=== PATIENT | male | born 1955 | race African-American/Black ===

== ENCOUNTER 2023-01-08 18:13 | Inpatient (IN) | payer MEDICARE ==
[~2023-01-08] VITALS: Ht 177.8 cm; Wt 86.2 kg
[~2023-01-08 18:13] MED LIST: LIDOCAINE HCL 2% LOCAL INJ 5 ML SDV VIAL INJ ONE; POVIDONE IODINE 0.05% 0.05 % ML PO ONE; PROPOFOL IV EMULSION 10 MG/ML 20 ML VIAL ONE
[2023-01-08] MEDS ORDERED: ONDANSETRON HCL INJ 2MG/ML 2ML 2 MG/ML VIAL IV PRN (18:45)
[2023-01-08] MEDS ORDERED: SODIUM CHLORIDE FLUSH 10 ML SYR INJ PRN (18:45)
[2023-01-08 19:12] LABS: BASOPHILS # (AUTO) 0.1 (0.0-0.1); BASOPHILS % 0.9 % (0.0-1.0); EOSINOPHILS # (AUTO) 0.3 (0.0-0.4); EOSINOPHILS % 4.5 % (0.0-6.0); HEMATOCRIT 33.8 % (38.2-49.6); HEMOGLOBIN 10.4 g/dL (14.0-18.0); LYMPHOCYTES # (AUTO) 1.7 (1.0-3.2); LYMPHOCYTES % 24.1 % (18.0-39.1); MEAN CORPUSCULAR HEMOGLOBIN 29.1 pg (28-32); MEAN CORPUSCULAR HGB CONC 30.8 g/dL (31-35); MEAN CORPUSCULAR VOLUME 94.4 fL (81-99); MONOCYTES # (AUTO) 0.9 (0.2-0.8); MONOCYTES % 12.4 % (4.4-11.3); NEUTROPHILS # (AUTO) 4.1 (2.1-6.9); NEUTROPHILS % 57.7 % (38.7-80.0); PLATELET COUNT 157 x10e3/uL (140-360); RED BLOOD COUNT 3.58 x10e6/uL (4.3-5.7); RED CELL DISTRIBUTION WIDTH 16.5 % (11.7-14.4)
[2023-01-08 19:29] LABS: ALANINE AMINOTRANSFERASE 8 IU/L (0-55); ALBUMIN 3.6 g/dL (3.5-5.0); ALBUMIN/GLOBULIN RATIO 0.9 (0.8-2.0); ALKALINE PHOSPHATASE 65 IU/L (40-150); ANION GAP 15.2 mmol/L (8-16); BLOOD UREA NITROGEN 36 mg/dL (7-26); BUN/CREATININE RATIO 7 (6-25); CALCIUM 8.9 mg/dL (8.4-10.2); CARBON DIOXIDE 28 mmol/L (22-29); CHLORIDE 101 mmol/L (98-107); CREATININE, SERUM 5.24 mg/dL (0.72-1.25); GLUCOSE 155 mg/dL (74-118); POTASSIUM 4.2 mmol/L (3.5-5.1); SODIUM 140 mmol/L (136-145)
[2023-01-08] MEDS ORDERED: ENTRESTO 24 MG1 EACH PO (20:07)
[2023-01-08] MEDS ORDERED: BUMETANIDE1 MG PO (20:07)
[2023-01-08] MEDS ORDERED: HYDRALAZINE HCL50 MG PO (20:07)
[2023-01-08] MEDS ORDERED: SEVELAMER CARB800 MG PO (20:07)
[2023-01-08] MEDS ORDERED: CINACALCET HCL30 MG PO (20:09)
[2023-01-08] MEDS ORDERED: CLOPIDOGREL75 MG PO (20:09)
[2023-01-08] MEDS ORDERED: ELIQUIS2.5 MG PO (20:09)
[2023-01-08] MEDS ORDERED: ISOSORBIDE MONO30 MG PO (20:16)
[2023-01-08] MEDS ORDERED: GABAPENTIN100 MG PO (20:16)
[2023-01-08] MEDS ORDERED: DORZOLAMIDE-TIM10 ML OU (20:16)
[2023-01-08] MEDS ORDERED: CALCITRIOL0.25 MCG PO (20:16)
[2023-01-08] MEDS ORDERED: LATANOPROST2.5 ML OU (20:16)
[2023-01-08] MEDS ORDERED: HUMALOG100 UNIT/3 SQ (20:16)
[2023-01-08] MEDS ORDERED: FINASTERIDE5 MG PO (20:16)
[2023-01-08] MEDS ORDERED: LANTUS 3ML100 UNITS/ SQ (20:16)
[2023-01-08] MEDS ORDERED: CARVEDILOL25 MG PO (20:16)
[2023-01-08] MEDS ORDERED: ATORVASTATIN CA20 MG PO (20:16)
[2023-01-08] MEDS ORDERED: DIALYVITE 800-1 EACH PO (20:17)
[2023-01-08] MEDS: LATANOPROST(OPTH) 2.5 ML BTL OU SCH (21:00)
[2023-01-08] MEDS: HYDRALAZINE HCL 25 MG TAB PO SCH (22:16)
[2023-01-08] MEDS: GABAPENTIN 100 MG CAP PO SCH (22:16)
[2023-01-08] MEDS: SEVELAMER CARBONATE 800 MG TAB PO SCH (22:16)
[2023-01-08] MEDS ORDERED: DEXTROSE 50% SYRINGE 50 ML IV PRN (23:45)
[2023-01-09] MEDS: INSULIN LISPRO 100 UNIT/1 ML 3ML VIAL SQ SCH ×7 (07:13→20:58)
[2023-01-09] MEDS: INSULIN GLARGINE 100 UNITS/ML VIAL SQ SCH ×2 (07:30→17:44)
[2023-01-09] MEDS: SEVELAMER CARBONATE 800 MG TAB PO SCH ×3 (08:00→17:19)
[2023-01-09] MEDS: CINACALCET 30 MG TAB PO SCH ×2 (08:00→15:53)
[2023-01-09] MEDS ORDERED: INSULIN LISPRO 100 UNIT/1 ML 3ML VIAL SQ SCH (08:00)
[2023-01-09] MEDS: HYDRALAZINE HCL 25 MG TAB PO SCH ×3 (09:00→20:53)
[2023-01-09] MEDS: VIT BCOMP PO SCH (09:00)
[2023-01-09] MEDS: VITAMIN D3 PO SCH (09:00)
[2023-01-09] MEDS: APIXAB 2.5 MG TABLET PO SCH ×2 (09:00→17:19)
[2023-01-09] MEDS: CARVEDILOL 12.5 MG TAB PO SCH ×2 (09:00→17:20)
[2023-01-09] MEDS: GABAPENTIN 100 MG CAP PO SCH ×3 (09:00→20:51)
[2023-01-09] MEDS ORDERED: INSULIN GLARGINE 100 UNITS/ML VIAL SQ SCH (09:00)
[2023-01-09] MEDS: VALSARTAN/SACUBITRIL 24MG/26MG 1 EA TAB PO SCH ×2 (09:00→17:19)
[2023-01-09] MEDS: [UNRECOGNIZED DRUG - OTHER] PO SCH (09:00)
[2023-01-09] MEDS: DORZOLAMIDE/TIMOLOL (OPTH SOL) 10 ML DRPETTE OP SCH ×2 (09:00→17:30)
[2023-01-09] MEDS: ZINC PO SCH (09:00)
[2023-01-09] MEDS ORDERED: ATORVASTATIN 20 MG TAB PO SCH (09:00)
[2023-01-09 11:03] VITALS: BP 152/61; PULSE 62; RESP 18; TEMP 98.1; O2SAT 97
[2023-01-09 11:11] VITALS: BP 152/61; PULSE 62; RESP 18; TEMP 98.1; O2SAT 97
[2023-01-09 12:14] VITALS: BP 152/61; PULSE 62; RESP 18; TEMP 98.1; O2SAT 99
[2023-01-09 15:00] VITALS: BP 134/84; PULSE 64; RESP 19; TEMP 98.7; O2SAT 99
[2023-01-09] MEDS: CALCITRIOL 0.25 MCG CAP PO SCH (15:52)
[2023-01-09] MEDS: BUMETANIDE 1 MG TAB PO SCH (15:52)
[2023-01-09] MEDS: ISOSORBIDE MONONITRATE 30 MG TAB CR PO SCH (15:52)
[2023-01-09] MEDS: FINASTERIDE 5 MG TAB PO SCH (15:53)
[2023-01-09] MEDS: CLOPIDOGREL BISULFATE 75 MG TAB PO SCH (15:53)
[2023-01-09] MEDS: ATORVASTATIN 20 MG TAB PO SCH (20:51)
[2023-01-09] MEDS: LATANOPROST(OPTH) 2.5 ML BTL OU SCH (20:53)
[2023-01-09] MEDS: HYDROCODONE/APAP 10MG-325MG TAB PO PRN (21:32)
[2023-01-09 21:35] VITALS: BP 101/56; PULSE 65; RESP 18; TEMP 97.8; O2SAT 96
[2023-01-10] VITALS (8 sets, daily range): BP systolic 89–138; BP diastolic 45–64; PULSE 57–69; RESP 17–20; TEMP 97.5–98.1; O2SAT 96–100
[2023-01-10] MEDS: HYDROCODONE/APAP 10MG-325MG TAB PO PRN (06:15)
[2023-01-10] MEDS: [UNRECOGNIZED DRUG - OTHER] PO SCH (09:00)
[2023-01-10] MEDS: VITAMIN D3 PO SCH (09:00)
[2023-01-10] MEDS: VIT BCOMP PO SCH (09:00)
[2023-01-10] MEDS: ZINC PO SCH (09:00)
[2023-01-10] MEDS: DORZOLAMIDE/TIMOLOL (OPTH SOL) 10 ML DRPETTE OP SCH ×2 (09:11→16:55)
[2023-01-10] MEDS: SEVELAMER CARBONATE 800 MG TAB PO SCH ×3 (09:12→16:54)
[2023-01-10] MEDS: BUMETANIDE 1 MG TAB PO SCH (09:14)
[2023-01-10] MEDS: GABAPENTIN 100 MG CAP PO SCH ×3 (09:14→21:24)
[2023-01-10] MEDS: CLOPIDOGREL BISULFATE 75 MG TAB PO SCH (09:14)
[2023-01-10] MEDS: FINASTERIDE 5 MG TAB PO SCH (09:15)
[2023-01-10] MEDS: CARVEDILOL 12.5 MG TAB PO SCH ×2 (09:15→16:54)
[2023-01-10] MEDS: APIXAB 2.5 MG TABLET PO SCH ×2 (09:15→16:54)
[2023-01-10] MEDS: HYDRALAZINE HCL 25 MG TAB PO SCH ×3 (09:15→21:24)
[2023-01-10] MEDS: VALSARTAN/SACUBITRIL 24MG/26MG 1 EA TAB PO SCH ×2 (09:18→16:54)
[2023-01-10] MEDS: ISOSORBIDE MONONITRATE 30 MG TAB CR PO SCH (09:18)
[2023-01-10] MEDS: INSULIN GLARGINE 100 UNITS/ML VIAL SQ SCH ×2 (09:21→16:51)
[2023-01-10] MEDS: INSULIN LISPRO 100 UNIT/1 ML 3ML VIAL SQ SCH ×7 (09:21→21:33)
[2023-01-10] MEDS: LATANOPROST(OPTH) 2.5 ML BTL OU SCH (21:22)
[2023-01-10] MEDS: ATORVASTATIN 20 MG TAB PO SCH (21:24)
[2023-01-11] VITALS (7 sets, daily range): BP systolic 92–129; BP diastolic 54–65; PULSE 60–67; RESP 18–20; TEMP 96.7–98.8; O2SAT 97–100
[2023-01-11 06:14] LABS: BASOPHILS # (AUTO) 0.1 (0.0-0.1); BASOPHILS % 0.9 % (0.0-1.0); EOSINOPHILS # (AUTO) 0.4 (0.0-0.4); EOSINOPHILS % 6.5 % (0.0-6.0); HEMATOCRIT 37.3 % (38.2-49.6); HEMOGLOBIN 11.8 g/dL (14.0-18.0); LYMPHOCYTES # (AUTO) 1.9 (1.0-3.2); MEAN CORPUSCULAR HEMOGLOBIN 29.1 pg (28-32); MEAN CORPUSCULAR HGB CONC 31.6 g/dL (31-35); MEAN CORPUSCULAR VOLUME 91.9 fL (81-99); MONOCYTES # (AUTO) 0.8 (0.2-0.8); MONOCYTES % 12.3 % (4.4-11.3); NEUTROPHILS # (AUTO) 3.4 (2.1-6.9); NEUTROPHILS % 50.8 % (38.7-80.0); PLATELET COUNT 181 x10e3/uL (140-360); RED BLOOD COUNT 4.06 x10e6/uL (4.3-5.7); RED CELL DISTRIBUTION WIDTH 16.1 % (11.7-14.4)
[2023-01-11 06:22] LABS: INR 1.07; PROTHROMBIN TIME 14.4 seconds (11.9-14.5)
[2023-01-11 06:35] LABS: ANION GAP 17.6 mmol/L (8-16); CALCIUM 8.7 mg/dL (8.4-10.2); CHOL/HDL RATIO 4.5 (3.9-4.7); CREATININE, SERUM 6.37 mg/dL (0.72-1.25); POTASSIUM 4.6 mmol/L (3.5-5.1)
[2023-01-11] MEDS: [UNRECOGNIZED DRUG - OTHER] PO SCH (09:00)
[2023-01-11] MEDS: APIXAB 2.5 MG TABLET PO SCH ×2 (09:00→09:10)
[2023-01-11] MEDS: CLOPIDOGREL BISULFATE 75 MG TAB PO SCH ×2 (09:00→09:09)
[2023-01-11] MEDS: ISOSORBIDE MONONITRATE 30 MG TAB CR PO SCH (09:00)
[2023-01-11] MEDS: VIT BCOMP PO SCH (09:00)
[2023-01-11] MEDS: HYDRALAZINE HCL 25 MG TAB PO SCH ×3 (09:00→21:00)
[2023-01-11] MEDS: VITAMIN D3 PO SCH (09:00)
[2023-01-11] MEDS: ZINC PO SCH (09:00)
[2023-01-11] MEDS: SEVELAMER CARBONATE 800 MG TAB PO SCH ×3 (09:09→16:29)
[2023-01-11] MEDS: GABAPENTIN 100 MG CAP PO SCH ×3 (09:09→21:00)
[2023-01-11] MEDS: VALSARTAN/SACUBITRIL 24MG/26MG 1 EA TAB PO SCH ×2 (09:10→16:29)
[2023-01-11] MEDS: CARVEDILOL 12.5 MG TAB PO SCH ×2 (09:10→16:29)
[2023-01-11] MEDS: BUMETANIDE 1 MG TAB PO SCH (09:11)
[2023-01-11] MEDS: DORZOLAMIDE/TIMOLOL (OPTH SOL) 10 ML DRPETTE OP SCH ×2 (09:16→16:28)
[2023-01-11] MEDS: INSULIN LISPRO 100 UNIT/1 ML 3ML VIAL SQ SCH ×7 (09:21→21:00)
[2023-01-11] MEDS: INSULIN GLARGINE 100 UNITS/ML VIAL SQ SCH ×2 (09:22→17:14)
[2023-01-11] MEDS: FINASTERIDE 5 MG TAB PO SCH (09:25)
[2023-01-11] MEDS: MUPIROCIN 2% OINT 22 GM TUBE TOP SCH ×2 (09:27→17:16)
[2023-01-11 14:46] LABS: ANION GAP 18.9 mmol/L (8-16); CALCIUM 8.9 mg/dL (8.4-10.2); CREATININE, SERUM 7.06 mg/dL (0.72-1.25); POTASSIUM 4.9 mmol/L (3.5-5.1)
[2023-01-11] MEDS: LATANOPROST(OPTH) 2.5 ML BTL OU SCH (20:58)
[2023-01-11] MEDS: ATORVASTATIN 20 MG TAB PO SCH (21:00)
[2023-01-11 23:03] LABS: AMPHETAMINES SCREEN,URINE NEGATIVE (NEGATIVE); BENZODIAZEPINES SCREEN,URINE NEGATIVE (NEGATIVE); PHENCYCLIDINE SCREEN,URINE NEGATIVE (NEGATIVE)
[2023-01-12] VITALS (8 sets, daily range): BP systolic 99–140; BP diastolic 47–61; PULSE 62–74; RESP 18–20; TEMP 98–98.6; O2SAT 96–100
[2023-01-12 06:04] LABS: ANION GAP 19.3 mmol/L (8-16); CALCIUM 8.5 mg/dL (8.4-10.2); CREATININE, SERUM 7.76 mg/dL (0.72-1.25); POTASSIUM 4.3 mmol/L (3.5-5.1)
[2023-01-12] MEDS ORDERED: Vancomycin IV 1 GM VIAL ONE (06:31)
[2023-01-12] MEDS ORDERED: LIDOCAINE HCL 1% LOCAL INJ 20 ML VIAL ONE (06:32)
[2023-01-12] MEDS ORDERED: BUPIVACAINE HCL 0.5% INJ 30 ML VIAL INJ ONE ×2 (06:32→06:55)
[2023-01-12] MEDS ORDERED: BETAMETHASONE DISODIUM PHOS 6 MG/ML VIAL ONE (06:55)
[2023-01-12] MEDS ORDERED: MUPIROCIN 2% OINT 22 GM TUBE ONE (06:55)
[2023-01-12] MEDS: INSULIN GLARGINE 100 UNITS/ML VIAL SQ SCH ×2 (07:30→16:01)
[2023-01-12] MEDS: INSULIN LISPRO 100 UNIT/1 ML 3ML VIAL SQ SCH ×7 (07:30→21:00)
[2023-01-12] MEDS: VITAMIN D3 PO SCH (09:00)
[2023-01-12] MEDS: VIT BCOMP PO SCH (09:00)
[2023-01-12] MEDS: ZINC PO SCH (09:00)
[2023-01-12] MEDS: [UNRECOGNIZED DRUG - OTHER] PO SCH (09:00)
[2023-01-12] MEDS: BUMETANIDE 1 MG TAB PO SCH (09:08)
[2023-01-12] MEDS: SEVELAMER CARBONATE 800 MG TAB PO SCH ×3 (09:09→17:49)
[2023-01-12] MEDS: VALSARTAN/SACUBITRIL 24MG/26MG 1 EA TAB PO SCH ×2 (09:09→17:00)
[2023-01-12] MEDS: CALCITRIOL 0.25 MCG CAP PO SCH (09:09)
[2023-01-12] MEDS: MUPIROCIN 2% OINT 22 GM TUBE TOP SCH ×2 (09:09→17:52)
[2023-01-12] MEDS: HYDRALAZINE HCL 25 MG TAB PO SCH ×3 (09:09→20:23)
[2023-01-12] MEDS: ISOSORBIDE MONONITRATE 30 MG TAB CR PO SCH (09:10)
[2023-01-12] MEDS: LATANOPROST(OPTH) 2.5 ML BTL OU SCH ×2 (09:10→17:49)
[2023-01-12] MEDS: CINACALCET 30 MG TAB PO SCH (09:10)
[2023-01-12] MEDS: FINASTERIDE 5 MG TAB PO SCH (09:10)
[2023-01-12] MEDS: CARVEDILOL 12.5 MG TAB PO SCH ×2 (09:12→17:00)
[2023-01-12] MEDS: DORZOLAMIDE/TIMOLOL (OPTH SOL) 10 ML DRPETTE OP SCH ×2 (09:12→17:50)
[2023-01-12] MEDS: GABAPENTIN 100 MG CAP PO SCH ×3 (09:12→20:21)
[2023-01-12] MEDS ORDERED: ONDANSETRON HCL 4 MG ORAL DISINTEGRATING TAB PO PRN (13:00)
[2023-01-12] MEDS ORDERED: SODIUM CHLORIDE 0.9% 1000ML 2,000 ML ONE (14:20)
[2023-01-12] MEDS ORDERED: ALBUMIN 25% 12.5GM 50ML 50 ML IV ONE (15:02)
[2023-01-12] MEDS ORDERED: ALBUMIN 25% 12.5GM 0.25 GM/ML BTL IV PRN (16:30)
[2023-01-12] MEDS ORDERED: SODIUM CHLORIDE 0.9% 1000ML 2,000 ML IV PRN (16:30)
[2023-01-12] MEDS: HYDROCODONE/APAP 10MG-325MG TAB PO PRN (20:22)
[2023-01-12] MEDS: ATORVASTATIN 20 MG TAB PO SCH (20:23)
[2023-01-13] VITALS (7 sets, daily range): BP systolic 98–120; BP diastolic 45–56; PULSE 67–76; RESP 17–20; TEMP 98–99.4; O2SAT 96–100
[2023-01-13] MEDS: HYDRALAZINE HCL 25 MG TAB PO SCH ×3 (04:34→21:00)
[2023-01-13] MEDS: HYDROCODONE/APAP 10MG-325MG TAB PO PRN ×2 (05:56→16:22)
[2023-01-13] MEDS: INSULIN GLARGINE 100 UNITS/ML VIAL SQ SCH ×2 (07:30→16:35)
[2023-01-13] MEDS: INSULIN LISPRO 100 UNIT/1 ML 3ML VIAL SQ SCH ×7 (07:30→21:19)
[2023-01-13] MEDS: GABAPENTIN 100 MG CAP PO SCH ×3 (08:11→21:13)
[2023-01-13] MEDS: CARVEDILOL 12.5 MG TAB PO SCH ×2 (08:11→17:00)
[2023-01-13] MEDS: FINASTERIDE 5 MG TAB PO SCH (08:11)
[2023-01-13] MEDS: BUMETANIDE 1 MG TAB PO SCH (08:11)
[2023-01-13] MEDS: SEVELAMER CARBONATE 800 MG TAB PO SCH ×3 (08:12→18:27)
[2023-01-13] MEDS: VALSARTAN/SACUBITRIL 24MG/26MG 1 EA TAB PO SCH ×2 (08:13→18:27)
[2023-01-13] MEDS: ISOSORBIDE MONONITRATE 30 MG TAB CR PO SCH (08:13)
[2023-01-13] MEDS: [UNRECOGNIZED DRUG - OTHER] PO SCH (08:14)
[2023-01-13] MEDS: VIT BCOMP PO SCH (08:14)
[2023-01-13] MEDS: ZINC PO SCH (08:14)
[2023-01-13] MEDS: VITAMIN D3 PO SCH (08:14)
[2023-01-13] MEDS: DORZOLAMIDE/TIMOLOL (OPTH SOL) 10 ML DRPETTE OP SCH ×2 (08:16→18:27)
[2023-01-13] MEDS: MUPIROCIN 2% OINT 22 GM TUBE TOP SCH ×2 (09:53→17:54)
[2023-01-13] MEDS: ATORVASTATIN 20 MG TAB PO SCH (21:13)
[2023-01-13] MEDS: LATANOPROST(OPTH) 2.5 ML BTL OU SCH (21:14)
[2023-01-14] VITALS (10 sets, daily range): BP systolic 100–140; BP diastolic 40–73; PULSE 61–88; RESP 16–20; TEMP 97.8–99; O2SAT 96–99
[2023-01-14] MEDS: INSULIN LISPRO 100 UNIT/1 ML 3ML VIAL SQ SCH ×7 (07:30→20:28)
[2023-01-14] MEDS: ZINC PO SCH (09:00)
[2023-01-14] MEDS: MUPIROCIN 2% OINT 22 GM TUBE TOP SCH ×2 (09:00→16:56)
[2023-01-14] MEDS: VIT BCOMP PO SCH (09:00)
[2023-01-14] MEDS: VITAMIN D3 PO SCH (09:00)
[2023-01-14] MEDS: [UNRECOGNIZED DRUG - OTHER] PO SCH (09:00)
[2023-01-14] MEDS: DORZOLAMIDE/TIMOLOL (OPTH SOL) 10 ML DRPETTE OP SCH ×2 (09:00→16:55)
[2023-01-14] MEDS: LINEZOLID 600 MG/D5W 300ML 300 ML IV SCH ×2 (09:23→22:27)
[2023-01-14] MEDS: ISOSORBIDE MONONITRATE 30 MG TAB CR PO SCH (09:28)
[2023-01-14] MEDS: SEVELAMER CARBONATE 800 MG TAB PO SCH ×3 (09:28→16:53)
[2023-01-14] MEDS: FINASTERIDE 5 MG TAB PO SCH (09:29)
[2023-01-14] MEDS: BUMETANIDE 1 MG TAB PO SCH (09:29)
[2023-01-14] MEDS ORDERED: HEPARIN SOD (PORCINE) 1000 UNIT/ML 30ML ONE (09:29)
[2023-01-14] MEDS ORDERED: LIDOCAINE HCL 2% LOCAL 20 ML VIAL ONE (09:29)
[2023-01-14] MEDS: CINACALCET 30 MG TAB PO SCH (09:30)
[2023-01-14] MEDS ORDERED: IOPAMIDOL 370 MG/ML 100 ML INFUS..BTL INJ ONE ×2 (09:30→09:42)
[2023-01-14] MEDS: VALSARTAN/SACUBITRIL 24MG/26MG 1 EA TAB PO SCH ×2 (09:30→16:56)
[2023-01-14] MEDS: CARVEDILOL 12.5 MG TAB PO SCH ×2 (09:30→16:55)
[2023-01-14] MEDS: CALCITRIOL 0.25 MCG CAP PO SCH (09:30)
[2023-01-14] MEDS ORDERED: HEPARIN SOD/SOD CHLORIDE 2,000 ML ONE (09:30)
[2023-01-14] MEDS ORDERED: NITROGLYCERIN/D5W 200 MCG/ML 250 ML ONE (09:30)
[2023-01-14] MEDS ORDERED: SODIUM CHLORIDE 0.9% 1000ML 1,000 ML ONE ×2 (09:30→10:28)
[2023-01-14] MEDS: GABAPENTIN 100 MG CAP PO SCH ×3 (09:31→22:27)
[2023-01-14] MEDS: HYDRALAZINE HCL 25 MG TAB PO SCH ×3 (09:32→22:29)
[2023-01-14] MEDS: LATANOPROST(OPTH) 2.5 ML BTL OU SCH ×2 (09:35→22:32)
[2023-01-14] MEDS: INSULIN GLARGINE 100 UNITS/ML VIAL SQ SCH ×2 (09:43→17:02)
[2023-01-14] MEDS ORDERED: MIDAZOLAM HCL 2 MG/2 ML VIAL ONE (10:06)
[2023-01-14] MEDS ORDERED: FENTANYL CITRATE/PF 100MCG/2 ML INJ ONE (10:06)
[2023-01-14] MEDS ORDERED: VERAPAMIL HCL 2.5 MG/ML 2 ML VIAL ONE (10:28)
[2023-01-14] MEDS ORDERED: CLOPIDOGREL BISULFATE 75 MG TAB ONE (11:06)
[2023-01-14] MEDS ORDERED: ASPIRIN 325 MG TAB ONE (11:07)
[2023-01-14] MEDS: HYDROCODONE/APAP 10MG-325MG TAB PO PRN (12:07)
[2023-01-14] MEDS: ATORVASTATIN 20 MG TAB PO SCH (22:27)
[2023-01-15] VITALS (7 sets, daily range): BP systolic 112–129; BP diastolic 53–59; PULSE 67–74; RESP 17–20; TEMP 98.2–100.2; O2SAT 95–98
[2023-01-15] MEDS: HYDROCODONE/APAP 10MG-325MG TAB PO PRN ×2 (00:30→20:27)
[2023-01-15] MEDS: INSULIN LISPRO 100 UNIT/1 ML 3ML VIAL SQ SCH ×7 (07:30→21:00)
[2023-01-15] MEDS: LINEZOLID 600 MG/D5W 300ML 300 ML IV SCH ×2 (08:44→20:27)
[2023-01-15] MEDS: ISOSORBIDE MONONITRATE 30 MG TAB CR PO SCH (08:46)
[2023-01-15] MEDS: GABAPENTIN 100 MG CAP PO SCH ×3 (08:47→20:30)
[2023-01-15] MEDS: BUMETANIDE 1 MG TAB PO SCH (08:47)
[2023-01-15] MEDS: ASPIRIN 81 MG CHEW TAB PO SCH (08:47)
[2023-01-15] MEDS: SEVELAMER CARBONATE 800 MG TAB PO SCH ×3 (08:47→16:44)
[2023-01-15] MEDS: HYDRALAZINE HCL 25 MG TAB PO SCH ×3 (08:47→20:30)
[2023-01-15] MEDS: VALSARTAN/SACUBITRIL 24MG/26MG 1 EA TAB PO SCH ×2 (08:47→16:38)
[2023-01-15] MEDS: CARVEDILOL 12.5 MG TAB PO SCH ×2 (08:48→16:41)
[2023-01-15] MEDS: FINASTERIDE 5 MG TAB PO SCH (08:48)
[2023-01-15] MEDS: DORZOLAMIDE/TIMOLOL (OPTH SOL) 10 ML DRPETTE OP SCH ×2 (08:49→16:45)
[2023-01-15] MEDS: INSULIN GLARGINE 100 UNITS/ML VIAL SQ SCH ×2 (08:57→16:30)
[2023-01-15] MEDS: MUPIROCIN 2% OINT 22 GM TUBE TOP SCH ×2 (09:00→16:42)
[2023-01-15] MEDS: VIT BCOMP PO SCH (09:00)
[2023-01-15] MEDS: ZINC PO SCH (09:00)
[2023-01-15] MEDS: [UNRECOGNIZED DRUG - OTHER] PO SCH (09:00)
[2023-01-15] MEDS: VITAMIN D3 PO SCH (09:00)
[2023-01-15] MEDS: CLOPIDOGREL BISULFATE 75 MG TAB PO SCH (11:59)
[2023-01-15] MEDS: ATORVASTATIN 20 MG TAB PO SCH (20:30)
[2023-01-15] MEDS: LATANOPROST(OPTH) 2.5 ML BTL OU SCH (21:24)
[2023-01-16 01:34] VITALS: BP 105/50; PULSE 63; RESP 16; TEMP 98.4; O2SAT 95
[2023-01-16 05:26] VITALS: BP 121/57; PULSE 64; RESP 18; TEMP 98.4; O2SAT 98
[2023-01-16 08:00] VITALS: BP 135/63; PULSE 61; RESP 20; TEMP 98.1; O2SAT 95
[2023-01-16 08:32] VITALS: BP 144/56; PULSE 63; RESP 18; TEMP 98.3; O2SAT 97
[2023-01-16] MEDS: LINEZOLID 600 MG/D5W 300ML 300 ML IV SCH (08:49)
[2023-01-16] MEDS: ASPIRIN 81 MG CHEW TAB PO SCH (08:50)
[2023-01-16] MEDS: CALCITRIOL 0.25 MCG CAP PO SCH (08:50)
[2023-01-16] MEDS: BUMETANIDE 1 MG TAB PO SCH (08:50)
[2023-01-16] MEDS: CINACALCET 30 MG TAB PO SCH (08:50)
[2023-01-16] MEDS: SEVELAMER CARBONATE 800 MG TAB PO SCH ×3 (08:51→17:05)
[2023-01-16] MEDS: GABAPENTIN 100 MG CAP PO SCH ×2 (08:51→15:08)
[2023-01-16] MEDS: FINASTERIDE 5 MG TAB PO SCH (08:52)
[2023-01-16] MEDS: DORZOLAMIDE/TIMOLOL (OPTH SOL) 10 ML DRPETTE OP SCH ×2 (08:52→17:07)
[2023-01-16] MEDS: CLOPIDOGREL BISULFATE 75 MG TAB PO SCH (08:53)
[2023-01-16] MEDS: INSULIN LISPRO 100 UNIT/1 ML 3ML VIAL SQ SCH ×6 (08:57→17:07)
[2023-01-16] MEDS: INSULIN GLARGINE 100 UNITS/ML VIAL SQ SCH ×2 (08:57→17:06)
[2023-01-16] MEDS: [UNRECOGNIZED DRUG - OTHER] PO SCH (09:00)
[2023-01-16] MEDS: ZINC PO SCH (09:00)
[2023-01-16] MEDS: HYDRALAZINE HCL 25 MG TAB PO SCH ×2 (09:00→15:08)
[2023-01-16] MEDS: VIT BCOMP PO SCH (09:00)
[2023-01-16] MEDS: VITAMIN D3 PO SCH (09:00)
[2023-01-16] MEDS: VALSARTAN/SACUBITRIL 24MG/26MG 1 EA TAB PO SCH ×2 (09:00→17:05)
[2023-01-16] MEDS: CARVEDILOL 12.5 MG TAB PO SCH ×2 (09:00→17:06)
[2023-01-16] MEDS: ISOSORBIDE MONONITRATE 30 MG TAB CR PO SCH (09:00)
[2023-01-16] MEDS: MUPIROCIN 2% OINT 22 GM TUBE TOP SCH ×2 (09:05→17:07)
[2023-01-16] MEDS ORDERED: DOXYCYCLINE HY100 MG PO (10:26)
[2023-01-16] MEDS ORDERED: ZYVOX100 MG/5 M PO (10:27)
[2023-01-16 12:19] VITALS: BP 135/63; PULSE 61; RESP 20; TEMP 98.1; O2SAT 95
[2023-01-16] MEDS ORDERED: HYDROCODONE/APAP 10MG-325MG TAB PO ONE (14:30)
[2023-01-16] MEDS ORDERED: HYDROCODONE/APAP 10MG-325MG TAB ONE (14:32)
[2023-01-16 16:10] VITALS: BP 132/53; PULSE 71; RESP 18; TEMP 99.6; O2SAT 98
[2023-01-16] MEDS ORDERED: APIXAB 2.5 MG TABLET PO SCH (18:00)
[2023-01-16] MEDS ORDERED: LINEZOLID 600 MG TAB PO SCH (21:00)
== END 2023-01-16 17:25 | disposition home or self-care (01) | DRG 270 ==
LOC: ER 18:19 → ERHOLD 18:43 → MED/SURG2 01-09 10:17
PROVIDERS: ADMIT Internal Medicine; ATTEND Internal Medicine
PROC: 5A1D70Z Performance of Urinary Filtration, Intermittent, Less than 6 Hours Per Day (ICD-10-PCS; 2023-01-09)
PROC: 0Y6R0Z0 Detachment at Right 2nd Toe, Complete, Open Approach (ICD-10-PCS; 2023-01-12)
PROC: 0J9Q0ZZ Drainage of Right Foot Subcutaneous Tissue and Fascia, Open Approach (ICD-10-PCS; 2023-01-12)
PROC: 047P3Z1 Dilation of Right Anterior Tibial Artery using Drug-Coated Balloon, Percutaneous Approach (ICD-10-PCS; principal; 2023-01-14)
PROC: 04CP3ZZ Extirpation of Matter from Right Anterior Tibial Artery, Percutaneous Approach (ICD-10-PCS; 2023-01-14)
PROC: 047R3Z1 Dilation of Right Posterior Tibial Artery using Drug-Coated Balloon, Percutaneous Approach (ICD-10-PCS; 2023-01-14)
PROC: B41D1ZZ Fluoroscopy of Aorta and Bilateral Lower Extremity Arteries using Low Osmolar Contrast (ICD-10-PCS; 2023-01-14)
DX: E11.52 Type 2 diabetes mellitus with diabetic peripheral angiopathy with gangrene (principal); N18.6 End stage renal disease; I70.261 Atherosclerosis of native arteries of extremities with gangrene, right leg; L97.414 Non-pressure chronic ulcer of right heel and midfoot with necrosis of bone; I12.0 Hypertensive chronic kidney disease with stage 5 chronic kidney disease or end stage renal disease; I70.92 Chronic total occlusion of artery of the extremities; I13.2 Hypertensive heart and chronic kidney disease with heart failure and with stage 5 chronic kidney disease, or end stage renal disease; I50.22 Chronic systolic (congestive) heart failure; I96 Gangrene, not elsewhere classified; Z99.2 Dependence on renal dialysis; E11.621 Type 2 diabetes mellitus with foot ulcer; I70.221 Atherosclerosis of native arteries of extremities with rest pain, right leg; I25.10 Atherosclerotic heart disease of native coronary artery without angina pectoris; Z95.1 Presence of aortocoronary bypass graft; Z79.4 Long term (current) use of insulin; E11.22 Type 2 diabetes mellitus with diabetic chronic kidney disease; Z89.432 Acquired absence of left foot; Z95.5 Presence of coronary angioplasty implant and graft; I48.0 Paroxysmal atrial fibrillation
CPT/HCPCS: 0223U; 36247; 36415; 37228; 37229; 71045; 75625; 75716; 76937; 80048; 80053; 80061; 80307; 82948; 83036; 84443; 85025; 85610; 86706; 86707; 87071; 87075; 87186; 87205; 88304; 88305; 88311; 90962; 93005; 93306; 93925; 96372; 99152; 99153; 99252; 99285; C1724; C1760; C1769; C1887; C1894; J1644; J1815; J2001; J2020; J2250; J2543; J7030; Q9967